=== PATIENT | female | born 1960 | race Caucasian/White ===

== ENCOUNTER → 2020-03-30 12:52 | Outpatient (CLI) | payer BC ==
[2010-10-03 15:51] VITALS: BMI 17.4
== END | disposition home or self-care (01) ==
LOC: D.LABREF 12:52
PROVIDERS: ATTEND Internal Medicine Pulmonary Disease
DX: Z11.59 Encounter for screening for other viral diseases (principal)

== ENCOUNTER → 2020-04-01 07:11 | Outpatient (CLI) | payer BC ==
[2010-10-03 15:51] VITALS: BMI 17.4
[2020-04-01 09:21] LABS: BASOPHILS 0.4 % (0-2); EOSINOPHILS 1.8 % (0-7); HEMATOCRIT 39.3 % (36.0-48.0); HEMOGLOBIN 12.3 g/dL (12-16); IMMATURE GRANULOCYTES 0.2 % (0-5); LYMPHOCYTES 35.9 % (15-50); MCH 31.1 pg (26.0-34.0); MCHC 31.3 g/dL (31.0-37.0); MCV 99.5 fL (80.0-100.0); MEAN PLATELET VOLUME 8.7 fL (7.4-10.4); MONOCYTES 8.2 % (2-11); NEUTROPHILS 53.5 % (40-80); PLATELET COUNT 254 10x3/uL (130-400); RBC 3.95 10x6/uL (4.00-5.40); RDW 13.1 % (11.5-14.5); WBC 5.6 10x3/uL (4.8-10.8)
== END | disposition home or self-care (01) ==
LOC: D.RT 07:11
PROVIDERS: ATTEND Internal Medicine Pulmonary Disease
DX: J44.9 Chronic obstructive pulmonary disease, unspecified (principal)

== ENCOUNTER → 2020-04-05 12:14 | Outpatient (CLI) | payer BC ==
[2010-10-03 15:51] VITALS: BMI 17.4
== END | disposition home or self-care (01) ==
LOC: D.RAD 12:14
PROVIDERS: ATTEND Internal Medicine Pulmonary Disease
DX: J44.9 Chronic obstructive pulmonary disease, unspecified (principal)